=== PATIENT | female | born 1935 | race Caucasian/White ===

== ENCOUNTER 2016-12-25 21:23 | Inpatient (IN) | payer MEDICARE, BC ==
[2016-12-25 21:45] VITALS: BP 119/62
[2016-12-25 22:00] VITALS: BP 119/62
--- NOTE | 2016-12-25 22:00 | NUR ---
RN ADMITTING NOTES Pt IS A DIRECT ADMIT FROM [facility]. Pt ARRIVED TO FLOOR VIA GURNEY BY EMT. Pt IS A/OX3, VERBAL, ABLE TO MAKE NEEDS KNOWN. ABLE TO AMBULATE WITH CANE AND ASSIST, GAIT UNSTEADY AND WEAK. NO S/S OF ACUTE DISTRESS OR SOB NOTED. SAFETY MEASURES IN PLACE. BED LOW, LOCKED, HOB ELEVATED, SIDE RAILS UP, CALL LIGHT AND BEDSIDE TABLE WITHIN REACH. WILL CONTINUE TO MONITOR Pt THROUGHOUT THE NIGHT FOR SAFETY.
[2016-12-25] MEDS ORDERED: IV NS 0.9% 1,000 ML IV PRN (23:30)
[2016-12-25] MEDS ORDERED: ZOLPIDEM TARTRATE 5 MG TABLET PO PRN (23:30)
[2016-12-25] MEDS ORDERED: HYDROCODONE/APAP 5/325MG 1 EACH TABLET PO PRN (23:30)
[2016-12-25] MEDS ORDERED: ENOXAPARIN SODIUM 40 MG/0.4 ML DISP.SYRIN SQ SCH (23:30)
[2016-12-25] MEDS ORDERED: ONDANSETRON HCL/PF 4 MG/2 ML VIAL IVP PRN (23:30)
[2016-12-25] MEDS ORDERED: Z GUARD REMEDY 2 OZ OINT TP PRN (23:30)
[2016-12-25] MEDS ORDERED: MAG HYDROX/AL HYDROX/SIMETH 30 ML UDC PO PRN (23:30)
[2016-12-25] MEDS ORDERED: ACETAMINOPHEN 325 MG TABLET PO PRN (23:30)
[2016-12-25] MEDS ORDERED: MAGNESIUM HYDROXIDE 30 ML UDC PO PRN (23:30)
[2016-12-26] VITALS: BP 137/65
[2016-12-26] MEDS ORDERED: ENOXAPARIN SODIUM 40 MG/0.4 ML DISP.SYRIN SQ ONE (00:53)
[2016-12-26 04:00] VITALS: BP 126/69
[2016-12-26] MEDS ORDERED: HYDROCODONE/APAP 5/325MG 1 EACH TABLET ONE (05:39)
[2016-12-26 06:45] LABS: BASOPHILS # (AUTO) 0.1 /CMM (0.0-0.2); BASOPHILS % (AUTO) 0.6 % (0.0-2.0); EOSINOPHILS # (AUTO) 0.4 /CMM (0.0-0.7); EOSINOPHILS % (AUTO) 4.9 % (0.0-6.0); HEMATOCRIT 46 % (33-45); HEMOGLOBIN 15.3 g/dL (11.5-14.8); LYMPHOCYTES # (AUTO) 2.7 /CMM (0.8-4.8); LYMPHOCYTES % (AUTO) 29.9 % (20.0-44.0); MEAN CORPUSCULAR HEMOGLOBIN 29 PG (26.0-33.0); MEAN CORPUSCULAR HGB CONC 33 g/dl (31.0-36.0); MEAN CORPUSCULAR VOLUME 87 fL (82-100); MONOCYTES # (AUTO) 0.8 /CMM (0.1-1.30); MONOCYTES % (AUTO) 8.5 % (2.0-12.0); NEUTROPHILS # (AUTO) 5.1 /CMM (1.8-8.9); NEUTROPHILS % (AUTO) 56.1 % (43.0-81.0); PLATELET COUNT (AUTO) 205 /CMM (150-450); RDW COEFFICIENT OF VARIATION 14.8 (11.5-15.0); RED BLOOD CELL COUNT(AUTO) 5.35 MIL/uL (4.0-5.2)
--- NOTE | 2016-12-26 07:00 | NUR ---
RN CLOSING NOTES NO SIGNIFICANT CHANGES IN Pt's CONDITION. Pt REMAINS STABLE. NO S/S OF ACUTE DISTRESS OR SOB NOTED DURING THE NIGHT. ALL NEEDS MET AND ATTENDED TO. SAFETY MEASURES IN PLACE. WILL ENDORSE TO DAYSHIFT RN FOR Pt's WILEY.
[2016-12-26 07:03] LABS: ALANINE AMINOTRANSFERASE 17 U/L (12-78); ALBUMIN 3.5 g/dL (3.4-5.0); ALKALINE PHOSPHATASE 58 U/L (46-116); ASPARTATE AMINOTRANSFERASE 24 U/L (15-37); B-TYPE NATRIURETIC PEPTIDE 2348 PG/ML (0-125); BILIRUBIN,TOTAL 0.8 mg/dL (0.2-1.0); CALCIUM, SERUM 10.4 mg/dL (8.5-10.1); CARBON DIOXIDE 32 mmol/L (21-32); CHLORIDE 108 mmol/L (98-107); CREATININE 1.1 mg/dL (0.6-1.3); GLUCOSE 86 mg/dL (74-106); MAGNESIUM 1.7 mg/dL (1.8-2.4); PHOSPHORUS 3.1 mg/dL (2.5-4.9); POTASSIUM 3.5 mmol/L (3.5-5.1); SODIUM SERUM 146 mmol/L (136-145); UREA NITROGEN, BLOOD 25 mg/dL (7-18)
[2016-12-26 07:06] VITALS: BP 119/53
[2016-12-26 07:07] LABS: CHOLESTEROL 164 mg/dL (<200); HDL CHOLESTEROL 38 mg/dL (40-60); LDL 109 mg/dL (0-99); THYROID STIMULATING HORMONE 0.202 uIU/mL (0.358-3.74); TRIGLYCERIDES 92 mg/dL (30-150)
[2016-12-26] MEDS ORDERED: IV NS 0.9% 1,000 ML IV PRN (07:14)
[2016-12-26 07:46] LABS: IRON, SERUM 56 ug/dl (50-175); TOTAL IRON BINDING CAPACITY 255 ug/dl (250-450)
[2016-12-26 08:00] VITALS: BP 111/65
--- NOTE | 2016-12-26 08:00 | NUR ---
MS RN RECEIVED ON BED, AWAKE,ALERT,ORIENTED X3,NOT IN ANY FORM OF DISTRESS, RESPIRATIONS EVEN AND UNLABORED, NO SOB NOTED. LUNGS ARE CLEAR,ABDOMEN SOFT,POSITIVE BOWEL SOUNDS, DENIES PAIN AT THIS TIME,WILL MONITOR PATIENT'S CONDITION.
[2016-12-26] MEDS ORDERED: HYDR5TAB2 PO (08:06)
[2016-12-26] MEDS ORDERED: CARV3.122 PO (08:06)
[2016-12-26] MEDS ORDERED: CHOL500052 PO (08:06)
[2016-12-26] MEDS ORDERED: AMLO5TAB2 PO (08:06)
[2016-12-26] MEDS ORDERED: ASPI325T2 PO (08:06)
[2016-12-26] MEDS ORDERED: LISI40TA4 PO (08:06)
[2016-12-26] MEDS ORDERED: METH5TAB6 PO (08:06)
[2016-12-26] MEDS ORDERED: HYDR25TA4 PO (08:06)
[2016-12-26] MEDS ORDERED: HYDR10TA14 PO (08:06)
[2016-12-26] MEDS ORDERED: ENOXAPARIN SODIUM 40 MG/0.4 ML DISP.SYRIN SQ SCH (08:27)
[2016-12-26] MEDS: CARVEDILOL 12.5 MG TABLET PO SCH ×2 (08:51→21:00)
[2016-12-26] MEDS: ATORVASTATIN 10 MG TABLET PO SCH (08:51)
[2016-12-26] MEDS: ASPIRIN 81 MG TAB.CHEW PO SCH (08:51)
--- NOTE | 2016-12-26 09:00 | NUR ---
ms hutchinson breakfast served,due meds given,tolerated well.
[2016-12-26] MEDS: Magnesium 1GM/D5W 100ML PREMIX 100 ML IV SCH ×2 (10:21→10:49)
--- NOTE | 2016-12-26 11:00 | NUR ---
MS RN WAS SEEN BY PT W/ EXERCISES DONE.
--- NOTE | 2016-12-26 12:30 | NUR ---
MS RN SPOKE W/ DR. CAVANAUGH, PATIENT WILL BE GOING IN AM.
[2016-12-26 16:00] VITALS: BP 111/60
--- NOTE | 2016-12-26 19:00 | NUR ---
MS RN ON BED,NO DISTRESS NOTED.
--- NOTE | 2016-12-26 19:30 | NUR ---
ELECTRICAL MACHINIST NOTE RECEIVED ON BED, AWAKE,ALERT,ORIENTED X3,NOT IN ANY FORM OF DISTRESS, RESPIRATIONS EVEN AND UNLABORED, NO SOB NOTED. LUNGS ARE CLEAR,ABDOMEN SOFT,POSITIVE BOWEL SOUNDS, DENIES PAIN AT THIS TIME,WILL MONITOR PATIENT'S CONDITION.
[2016-12-26 20:00] VITALS: BP 108/56
[2016-12-27] VITALS: BP 133/64
--- NOTE | 2016-12-27 06:06 | NUR ---
CVOR NURSE NOTE PATIENT STABLE. SLEPT WELL THROUGH THE NIGHT. IV SITE INTACT. PATIENT REFUSING IV FLUIDS AT THIS TIME. WILL ENDORSE TO DAY SHIFT FOR WILEY.
--- NOTE | 2016-12-27 06:48 | NUR ---
MICRO COMPUTER SPECIALIST NOTE ORTHOSTATIC BP- SITTING 147/65 STANDING 137/67 LYING 139/63
--- NOTE | 2016-12-27 07:15 | NUR ---
ELECTRICAL APPLIANCE SERVICER NOTES PATIENT ASLEEP BUT EASILY AROUSABLE, APPEARS COMFORTABLE, NO DISTRESS NOTED, BREATHING EVEN AND UNLABORED, NO SOB, NO COMPLAINT OF PAIN AT THIS TIME, NO NAUSEA AND VOMITING, PIV PATENT AND FLUSHES WELL, SAFETY MEASURES IN PLACED, CALL LIGHT WITHIN REACH, WILL CONTINUE TO MONITOR.
[2016-12-27 09:52] VITALS: BP 139/65
[2016-12-27] MEDS: ATORVASTATIN 10 MG TABLET PO SCH (09:52)
[2016-12-27] MEDS: ASPIRIN 81 MG TAB.CHEW PO SCH (09:52)
[2016-12-27] MEDS: CARVEDILOL 12.5 MG TABLET PO SCH (09:52)
[2016-12-27] MEDS ORDERED: HYDROCORTISONE SOD SUCCINATE 100 MG/2 ML VIAL IV ONE (12:00)
--- NOTE | 2016-12-27 12:00 | NUR ---
COPYHOLDER NOTES PATIENT SEEN BY DR. CAVANAUGH, PATIENT REQUESTING TO GO HOME TODAY, MD WILL REVIEW CHART AND WILL DECIDE, RECEIVED NEW ORDERS AT THIS TIME, ORDERS NOTED AND CARRIED OUT.
[2016-12-27] MEDS ORDERED: MAGNESIUM OXIDE 400 MG TABLET PO SCH (12:30)
--- NOTE | 2016-12-27 14:57 | NUR ---
BRIDAL SERVICE SALES AND MANAGEMENT NOTES RECEIVED AN ORDER FROM DR. CAVANAUGH FOR DISCHARGE, ORDER NOTED AND CARRIED OUT, PATIENT ASLEEP BUT AROUSABLE AND MADE AWARE, PATIENT KEPT REMOVING NASAL CANNULA, EXPLAINED RISKS OF DESATURATION, VERBALIZED UNDERSTANDING. DAUGHTER MADE AWARE OF DISCHARGE AND WILL BRICK PICKER AT 4:30PM. CALL LIGHT WITHIN REACH, WILL CONTINUE TO MONITOR.
--- NOTE | 2016-12-27 17:00 | NUR ---
LIDAR ANALYST NOTES PATIENT ALERT AND ORIENTED, NO DISTRESS NOTED, NO SOB AT THIS TIME, PATIENT'S DAUGHTER MARIAN AND PATIENT RECEIVED DISCHARGE INSTRUCTIONS AND EDUCATION, BOTH VERBALIZED UNDERSTANDING, PIV REMOVED SECURED WITH TAPE AND GAUZE, SKIN ASSESSMENT DONE, SKIN REMAINED INTACT, BELONGINGS RECONCILED AND COMPLETE, PATIENT'S DAUGHTER SIGNED THE DISCHARGE PAPERWORKS PATIENT'S REQUEST. PATIENT LEFT THE FACILITY TO HOME WITH HOME HEALTH ACCOMPANIED BY DAUGHTER VIA PRIVATE CAR.
== END 2016-12-27 16:45 | disposition home health service (06) | DRG 280 ==
LOC: TELE 21:23
PROVIDERS: ADMIT Internal Medicine; ATTEND Legal Medicine
DX: I21.4 Non-ST elevation (NSTEMI) myocardial infarction (principal); N17.0 Acute kidney failure with tubular necrosis; I48.0 Paroxysmal atrial fibrillation; D68.59 Other primary thrombophilia; G90.8 Other disorders of autonomic nervous system; I10 Essential (primary) hypertension; E78.5 Hyperlipidemia, unspecified; Z91.81 History of falling; Z98.890 Other specified postprocedural states
CPT/HCPCS: 36415; 80053-TC; 80061-TC; 83540-TC; 83735-TC; 83880; 84100-TC; 84443-TC; 84484-TC; 85025-TC; 87081-TC; 93307-TC; J1650; J1720; J2405; J3475; J7030